=== PATIENT | male | born 1950 | race Caucasian/White ===

== ENCOUNTER 2019-07-22 12:01 | Emergency (ER) | payer MEDICARE, OTHER ==
--- NOTE | 2019-07-22 13:01 | EDM.PDOC ---
ED HPI GENERAL MEDICAL PROBLEM - General Chief Complaint: General Stated Complaint: LEFT LIP NUMB LEFT HAND Time Seen by Provider: 07/22/19 12:50 Source of Information: Reports: Patient, RN Notes Reviewed History Limitations: Reports: No Limitations - History of Present Illness INITIAL COMMENTS - FREE TEXT/NARRATIVE: 69-year-old gentleman presents emergency department the complaint of numbness left lower lip and left hand. He states the symptoms started yesterday they are intermittent happens about once every 45 minutes it is increasing in frequency it feels very intense will last about a minute then completely resolves at times the lip will be numb without the fingertips going numb. Denies any other symptoms does have a remote history of multiple sclerosis - Related Data Allergies Allergy/AdvReac Type Severity Reaction Status Date / Time No Known Allergies Allergy Verified 09/24/13 11:16 Home Meds: Home Meds Omeprazole [priLOSEC OTC] 20 mg PO DAILY 09/24/13 [History] Aspirin 81 mg PO DAILY 07/22/19 [History] LORazepam 1 mg PO BEDTIME 07/22/19 [History] Levothyroxine [Synthroid] 50 mcg PO DAILY 07/22/19 [History] Past Medical History Neurological History: Reports: MS Endocrine/Metabolic History: Reports: Hypothyroidism Social & Family History - Tobacco Use Smoking Status *Q: Never Smoker - Caffeine Use Caffeine Use: Reports: Coffee - Recreational Drug Use Recreational Drug Use: No ED ROS GENERAL - Review of Systems Review Of Systems: See Below Constitutional: Reports: No Symptoms HEENT: Reports: No Symptoms Respiratory: Reports: No Symptoms Cardiovascular: Reports: No Symptoms GI/Abdominal: Reports: No Symptoms : Reports: No Symptoms Neurological: Reports: Numbness, Tingling ED EXAM, GENERAL - Physical Exam Exam: See Below Exam Limited By: No Limitations General Appearance: Alert, WD/WN, No Apparent Distress Eye Exam: Bilateral Eye: Normal Inspection, PERRL Ears: Normal External Exam, Normal Canal, Hearing Grossly Normal, Normal TMs Nose: Normal Inspection, Normal Mucosa, No Blood Throat/Mouth: Normal Inspection, Normal Lips, Normal Teeth, Normal Gums, Normal Oropharynx, Normal Voice, No Airway Compromise, Other (Venous kevin left lower lip) Head: Atraumatic, Normocephalic Neck: Normal Inspection, Supple, Non-Tender, Full Range of Motion Respiratory/Chest: No Respiratory Distress Neurological: Alert, Oriented, CN II-XII Intact, Normal Cognition, Normal Gait. No: Sensory/Motor Deficit Course - Vital Signs Last Recorded V/S: Last Vital Signs Temp 96.8 F 07/22/19 12:16 Pulse 67 07/22/19 12:16 Resp 16 07/22/19 12:16 BP 162/97 H 07/22/19 12:16 Pulse Ox 97 07/22/19 12:16 - Orders/Labs/Meds Labs: Laboratory Tests 07/22/19 07/22/19 Range/Units 13:02 13:02 WBC 7.1 (4.5-11.0) K/uL RBC 4.66 (4.30-5.90) M/uL Hgb 14.9 (12.0-15.0) g/dL Hct 44.9 (40.0-54.0) % MCV 96 (80-98) fL MCH 32 H (27-31) pg MCHC 33 (32-36) % Plt Count 226 (150-400) K/uL Neut % (Auto) 62 (36-66) % Lymph % (Auto) 27 (24-44) % Liberty % (Auto) 8 H (2-6) % Eos % (Auto) 3 (2-4) % Baso % (Auto) 0 (0-1) % Sodium 139 L (140-148) mmol/L Potassium 4.3 (3.6-5.2) mmol/L Chloride 102 (100-108) mmol/L Carbon Dioxide 26 (21-32) mmol/L Anion Gap 15.3 H (5.0-14.0) mmol/L BUN 17 (7-18) mg/dL Creatinine 1.2 (0.8-1.3) mg/dL Est Cr Clr Drug Dosing 69.44 mL/min Estimated GFR (MDRD) > 60 (>60) Glucose 99 (74-106) mg/dL Calcium 8.9 (8.5-10.1) mg/dL Total Bilirubin 0.4 (0.2-1.0) mg/dL AST 26 (15-37) U/L ALT 30 (12-78) U/L Alkaline Phosphatase 98 (46-116) U/L Total Protein 7.8 (6.4-8.2) g/dL Albumin 4.0 (3.4-5.0) g/dL Globulin 3.8 H (2.3-3.5) g/dL Albumin/Globulin Ratio 1.1 L (1.2-2.2) TSH, Ultra Sensitive 3.291 (0.358-3.740) uIU/mL Departure - Departure Time of Disposition: 13:48 Disposition: Home, Self-Care 01 Condition: Fair Clinical Impression: Numbness and tingling in left hand - Discharge Information Referrals: PCP,None [Primary Care Provider] - Forms: ED Department Discharge Additional Instructions: [facility] and schedule an appointment with your [facility]ist as soon as possible, call or return to the emergency department for worsening of symptoms - Assessment/Plan Plan: Assessment Acuity = acute Site and laterality = numbness and tingling face and hand Etiology = probably related to multiple sclerosis exacerbation Manifestations = none Location of injury = Home Lab values = CBC CMP unremarkable thyroid within normal limits Plan Did review lab work with him talked about the possibility of visiting with [facility]y [facility] repeating his MRI brain and thoracic cord is been over 10 years since he has had a follow-up visit also to reviewed new MS medications This note was dictated using [employer] recognition software please call with any questions on syntax or grammar.
== END 2019-07-22 13:57 | disposition home or self-care (01) ==
LOC: JP.ED 12:01
DX: R20.0 Anesthesia of skin (principal); R20.2 Paresthesia of skin; E03.9 Hypothyroidism, unspecified; Z79.82 Long term (current) use of aspirin; Z79.890 Hormone replacement therapy
CPT/HCPCS: 36415; 80053; 84443; 85025; 99284

== ENCOUNTER 2020-09-26 05:19 | Emergency (ER) | payer OTHER ==
[2020-09-26] MEDS ORDERED: Cetirizine 10 MG Tab PO ONE (05:42)
[2020-09-26] MEDS ORDERED: hydrOXYzine HCl 25 MG Tab PO ONE (05:42)
[2020-09-26] MEDS ORDERED: Famotidine 20 MG Tab PO ONE (05:42)
[2020-09-26] MEDS ORDERED: methylPREDNISolone Sodium Succinate 125 MG/2 ML SDV IM ONE (05:42)
--- NOTE | 2020-09-26 05:42 | EDM.PDOC ---
ED HPI GENERAL MEDICAL PROBLEM - General Chief Complaint: Skin Complaint Stated Complaint: RASH Time Seen by Provider: 09/26/20 05:37 Source of Information: Reports: Patient History Limitations: Reports: No Limitations - History of Present Illness INITIAL COMMENTS - FREE TEXT/NARRATIVE: Felix is a 70-year-old male presenting to the ED for evaluation of a rash. The rash started on his posterior last evening and was somewhat pruritic. The rash was red, swollen, and hot. Patient reports that after scratching the rash the area starts to burn. Through the evening the rash spread around the waistline to the front and started to intensify in itch, redness, and swelling. This morning the rash also spread to the face causing swelling of the forehead. The patient started trazodone and amitriptyline roughly 4 weeks ago and at the same time had a COVID-19 vaccination. He denies anything else new. The patient has been under considerable amount of stress. He denies any tongue or oropharyngeal swelling, difficulty breathing or swallowing, chest pain, abdominal pain, nausea or vomiting, or diarrhea. He has not had any new foods. - Related Data Allergies Allergy/AdvReac Type Severity Reaction Status Date / Time No Known Allergies Allergy Verified 09/24/13 11:16 Home Meds: Home Meds Omeprazole [priLOSEC OTC] 20 mg PO DAILY 09/24/13 [History] Aspirin 81 mg PO DAILY 07/22/19 [History] Levothyroxine [Synthroid] 50 mcg PO DAILY 07/22/19 [History] hydrOXYzine pamoate [Vistaril] 25 mg PO Q6H PRN #30 cap 09/26/20 [Rx] Past Medical History HEENT History: Reports: Impaired Vision Musculoskeletal History: Reports: Other (See Below) Other Musculoskeletal History: MS Neurological History: Reports: MS Endocrine/Metabolic History: Reports: Hypothyroidism - Infectious Disease History Infectious Disease History: Reports: Chicken Pox Social & Family History - Tobacco Use Tobacco Use Status *Q: Former Tobacco User Used Tobacco, but Quit: Yes Month/Year Tobacco Last Used: longtime ago - Caffeine Use Caffeine Use: Reports: Coffee - Recreational Drug Use Recreational Drug Use: No ED ROS GENERAL - Review of Systems Review Of Systems: See Below Constitutional: Reports: No Symptoms HEENT: Reports: No Symptoms Respiratory: Reports: No Symptoms Cardiovascular: Reports: No Symptoms Endocrine: Reports: No Symptoms GI/Abdominal: Reports: No Symptoms : Reports: No Symptoms Musculoskeletal: Reports: No Symptoms Skin: Reports: Pruritis, Rash (Buttocks, waistline, and face), Urticaria Neurological: Reports: No Symptoms Psychiatric: Reports: No Symptoms Hematologic/Lymphatic: Reports: No Symptoms Immunologic: Reports: No Symptoms ED EXAM, SKIN/RASH Exam: See Below Exam Limited By: No Limitations General Appearance: Alert, No Apparent Distress Eye Exam: Bilateral Eye: EOMI, PERRL Throat/Mouth: Normal Inspection, Normal Lips, Normal Oropharynx, Normal Voice, No Airway Compromise Head: Atraumatic, Normocephalic, Facial Swelling (Redness, swelling, and pruritus in the forehead consistent with urticaria) Neck: Normal Inspection, Supple Respiratory/Chest: No Respiratory Distress, Lungs Clear, Normal Breath Sounds Cardiovascular: Normal Peripheral Pulses, Regular Rate, Rhythm, No Murmur GI/Abdominal: Normal Bowel Sounds, Soft, Non-Tender Neurological: Alert, Oriented, Normal Cognition, No Motor/Sensory Deficits Skin: Rash (Great urticaria on the buttocks, anterior waistline, and forehead. The area blanches. There is quite pruritic.) Location, Skin: Face, Abdomen, Pelvis Characteristics: Urticarial Associated features: Warmth, Swelling Lymphatic: No Adenopathy Course - Vital Signs Last Recorded V/S: Last Vital Signs Temp 36.5 C 09/26/20 05:26 Pulse 52 L 09/26/20 05:26 Resp BP 144/70 H 09/26/20 05:26 Pulse Ox 98 09/26/20 05:26 - Orders/Labs/Meds Meds: Medications Discontinued Medications Generic Name Dose Route Start Last Admin Trade Name Freq PRN Reason Stop Dose Admin Cetirizine HCl 10 mg 09/26/20 05:42 09/26/20 05:52 Zyrtec PO 09/26/20 05:43 10 mg ONETIME ONE Administration Famotidine 20 mg 09/26/20 05:42 09/26/20 05:48 Pepcid PO 09/26/20 05:43 20 mg ONETIME ONE Administration Hydroxyzine HCl 25 mg 09/26/20 05:42 09/26/20 05:52 Atarax PO 09/26/20 05:43 25 mg ONETIME ONE Administration Methylprednisolone Sodium Succinate 125 mg 09/26/20 05:42 09/26/20 05:48 Solu-Medrol IM 09/26/20 05:43 125 mg ONETIME ONE Administration - Re-Assessments/Exams Free Text/Narrative Re-Assessment/Exam: 09/26/20 05:49 patient exhibits a rash that is urticarial in nature and very paretic, raised, red, and swollen. This is likely due to cholinergic histamine release secondary to stress. We will treat this with Solu-Medrol 125 mg IM, Pepcid 20 mg p.o., cetirizine 10 mg p.o., and hydroxyzine 25 mg p.o. Patient will likely need a prescription for hydroxyzine to control the itch. There is no oropharyngeal or respiratory involvement. I anticipate full recovery today. 09/26/20 06:20 patient rechecked with improvement of the urticaria and the pruritus is now gone. Departure - Departure Time of Disposition: 06:20 Disposition: Home, Self-Care 01 Condition: Good Clinical Impression: Urticaria - Discharge Information *PRESCRIPTION DRUG MONITORING PROGRAM REVIEWED*: Not Applicable *COPY OF PRESCRIPTION DRUG MONITORING REPORT IN PATIENT ISAIAS: Not Applicable Prescriptions: hydrOXYzine pamoate [Vistaril] 25 mg PO Q6H PRN #30 cap PRN Reason: Hives Referrals: Alka Quesada [employer] TECHNOLOGIST [Primary Care Provider] - Forms: ED Department Discharge Care Plan Goals: You have received treatment for urticaria (hives) with hydroxyzine to control the itch and cetirizine, Solu-Medrol, and Pepcid to control the histamine. This is likely mediated by stress. It can recur in high stress situations, however, I anticipate that it will fully clear up today. I am giving you a prescription for the hydroxyzine should it recur so that you have an ability to control the itch. You may buy [id number] Zyrtec which is cetirizine and over-the- counter Pepcid for any future outbreak as these are both potent histamine blockers. Return to the emergency room should you develop any difficulty with breathing or swallowing, chest pain, increased abdominal pain, nausea, vomiting, or diarrhea. Sepsis Event Note (ED) - Evaluation Sepsis Screening Result: No Definite Risk - Focused Exam Vital Signs: Vital Signs Temp Pulse BP Pulse Ox 09/26/20 05:26 36.5 C 52 L 144/70 H 98 - Problem List & Annotations (1) Urticaria SNOMED Code(s): 623058967 Code(s): L50.9 - URTICARIA, UNSPECIFIED Status: Acute Priority: Low Current Visit: Yes - Problem List Review Problem List Initiated/Reviewed/Updated: Yes
== END 2020-09-26 06:28 | disposition home or self-care (01) ==
LOC: JP.ED 05:19
DX: L50.9 Urticaria, unspecified (principal); E03.9 Hypothyroidism, unspecified; Z87.891 Personal history of nicotine dependence; Z79.899 Other long term (current) drug therapy
CPT/HCPCS: 96372; 99282; 99283; A9270; J2930

== ENCOUNTER 2021-03-07 16:32 | Emergency (ER) | payer OTHER, MEDICARE ==
[2021-03-07] MEDS ORDERED: HYDROmorphone 0.5 MG/0.5 ML Syringe IVPUSH ONE (17:12)
--- NOTE | 2021-03-07 17:39 | EDM.PDOC ---
ED HPI GENERAL MEDICAL PROBLEM - General Chief Complaint: Abdominal Pain Stated Complaint: UPPER ABDOMINAL PAIN(POST VALVE REPLACEMENT) Time Seen by Provider: 03/07/21 17:10 Source of Information: Reports: Patient, Family History Limitations: Reports: No Limitations - History of Present Illness INITIAL COMMENTS - FREE TEXT/NARRATIVE: 70-year-old male who has been through several medical procedures in the last couple of months including cardiac valve replacement, and is now on dialysis. 2 hours ago he developed a very sudden sharp pain in his right anterolateral chest wall which is very tender. It hurts to breathe. No nausea or vomiting or shortness of breath. No cough or fever. It is intensely uncomfortable, this has not happened to him in the past. Onset: Sudden Duration: Hour(s): (Pain started fairly suddenly 2 hours ago) Location: Reports: Other (Localized to the right anterior lower chest wall) Quality: Reports: Sharp, Stabbing Worsens with: Reports: Other (Palpation or movement) Associated Symptoms: Reports: No Other Symptoms. Denies: Cough, Loss of Appetite, Nausea/Vomiting, Shortness of Breath Abdomen Pain Score (Numeric/FACES): 8 - Related Data Allergies Allergy/AdvReac Type Severity Reaction Status Date / Time [id number] Reductase Allergy Muscle Verified 03/07/21 17:07 Inhibitor Weakness trazodone Allergy Hives Verified 03/07/21 17:07 Home Meds: Home Meds Aspirin [Halfprin] 81 mg PO DAILY 03/07/21 [History] Eszopiclone 2 mg PO BEDTIME 03/07/21 [History] Eszopiclone [Lunesta] 2 mg PO BEDTIME 03/07/21 [History] Levothyroxine [Synthroid] 50 mcg PO ACBREAKFAST 03/07/21 [History] Omeprazole 20 mg PO DAILY 03/07/21 [History] Rosuvastatin [Crestor] 20 mg PO DAILY 03/07/21 [History] Sertraline [Zoloft] 25 mg PO DAILY 03/07/21 [History] Warfarin [Coumadin] 2.5 mg PO DAILY 03/07/21 [History] Warfarin [Coumadin] 5 mg PO ASDIRECTED 03/07/21 [History] carvediloL [Carvedilol] 12.5 mg PO ASDIRECTED 03/07/21 [History] carvediloL [Carvedilol] 12.5 mg PO ASDIRECTED 03/07/21 [History] Past Medical History HEENT History: Reports: Impaired Vision Musculoskeletal History: Reports: Other (See Below) Other Musculoskeletal History: MS Neurological History: Reports: MS Endocrine/Metabolic History: Reports: Hypothyroidism - Infectious Disease History Infectious Disease History: Reports: Chicken Pox - Past Surgical History Cardiovascular Surgical History: Reports: Valve Replacement Social & Family History - Tobacco Use Tobacco Use Status *Q: Former Tobacco User Used Tobacco, but Quit: Yes Month/Year Tobacco Last Used: years ago - Caffeine Use Caffeine Use: Reports: Coffee - Recreational Drug Use Recreational Drug Use: No ED ROS GENERAL - Review of Systems Review Of Systems: See Below Constitutional: Reports: Malaise. Denies: Fever, Chills Respiratory: Reports: Pleuritic Chest Pain. Denies: Shortness of Breath Cardiovascular: Reports: Chest Pain. Denies: Palpitations GI/Abdominal: Denies: Abdominal Pain, Nausea, Vomiting Skin: Reports: No Symptoms Neurological: Reports: No Symptoms Psychiatric: Reports: No Symptoms ED EXAM, GENERAL - Physical Exam Exam: See Below Exam Limited By: No Limitations General Appearance: Alert, Mild Distress, Other (Very uncomfortable initially) Eye Exam: Bilateral Eye: Normal Inspection (No jaundice) Head: Atraumatic Neck: Supple, Non-Tender Respiratory/Chest: No Respiratory Distress, Lungs Clear, Other (Very localized tenderness to palpation over the lower anterior right rib cage, no rash over tender area or bruising) Cardiovascular: Regular Rate, Rhythm GI/Abdominal: Soft, Non-Tender, Other (No palpation tenderness in the right upper quadrant) Extremities: No Pedal Edema Neurological: Alert, Oriented Psychiatric: Anxious Skin Exam: Warm, Dry Course - Vital Signs Last Recorded V/S: Last Vital Signs Temp 97.3 F 03/07/21 17:06 Pulse 48 L 03/07/21 17:59 Resp 16 03/07/21 17:59 BP 94/75 03/07/21 17:59 Pulse Ox 95 03/07/21 17:59 - Orders/Labs/Meds Meds: Medications Discontinued Medications Generic Name Dose Route Start Last Admin Trade Name Freq PRN Reason Stop Dose Admin Hydromorphone HCl 0.5 mg 03/07/21 17:12 03/07/21 17:16 Hydromorphone 0.5 Mg/0.5 Ml Syringe IVPUSH 03/07/21 17:13 0.5 mg ONETIME ONE Administration - Re-Assessments/Exams Free Text/Narrative Re-Assessment/Exam: 03/08/21 11:24 Patient was given 0.5 mg of IV Dilaudid and sent back for two-view chest x-ray. The x-ray showed no effusion, pneumothorax or pulmonary abnormality, his pain had almost resolved. He could still reproduce it on palpation. He was encouraged to use his tramadol as needed for pain control, heating pad, and return if worsening and was discharged with a diagnosis of chest wall pain. Departure - Departure Time of Disposition: 18:19 Disposition: Home, Self-Care 01 Clinical Impression: Acute chest wall pain - Discharge Information Instructions: Chest Wall Pain, [id number] Referrals: Felix Light MD [Primary Care Provider] - Forms: ED Department Discharge Care Plan Goals: Continue your current medications, use your pain medications if needed, and a heating pad or warm compress to the area may be beneficial as well. Return anytime if worsening such as shortness of breath, recurrence of pain that is persistent or other concerns. Sepsis Event Note (ED) - Evaluation Sepsis Screening Result: No Definite Risk
--- NOTE | 2021-03-08 11:12 | CR ---
CHEST: 2 view CLINICAL HISTORY:Epigastric pain, lightheadedness COMPARISON:August 2020 FINDINGS: Patient has undergone mitral valve repair. Heart size and pulmonary vascularity are normal. Lungs are clear. There is a minimal left effusion. There is a right jugular double-lumen catheter in place. Impression: No acute cardiac pulmonary process Minimal left effusion Recent valve surgery
== END 2021-03-07 18:34 | disposition home or self-care (01) ==
LOC: JP.ED 16:32
DX: R07.89 Other chest pain (principal); E03.9 Hypothyroidism, unspecified; Z79.899 Other long term (current) drug therapy; Z87.891 Personal history of nicotine dependence; Z79.82 Long term (current) use of aspirin; Z79.01 Long term (current) use of anticoagulants; Z88.8 Allergy status to other drugs, medicaments and biological substances; Z88.5 Allergy status to narcotic agent
CPT/HCPCS: 71046; 96374; 99284; J1170

== ENCOUNTER 2022-01-10 20:34 | Inpatient (IN) | payer MEDICARE, OTHER ==
[2022-01-10] MEDS ORDERED: Ondansetron 4 MG/2 ML SDV IVPUSH ONE (20:41)
[2022-01-10] MEDS ORDERED: Sodium Chloride 0.9% 10 ML Syringe FLUSH PRN (20:48)
[2022-01-10] MEDS ORDERED: Aspirin 81 MG Tab.Chew PO ONE (20:48)
[2022-01-10] MEDS ORDERED: fentaNYL 100 MCG/2 ML SDV IVPUSH ONE (20:48)
[2022-01-10] MEDS ORDERED: Lactated Ringers 1,000 ML IV ONE (20:48)
[2022-01-10 21:16] LABS: TROPONIN I HIGH SENSITIVITY 59.1 pg/mL (<=60.3)
[2022-01-10] MEDS ORDERED: HYDROmorphone 1 MG/ML Syringe IVPUSH ONE ×2 (21:24→22:39)
[2022-01-10] MEDS ORDERED: HYDROmorphone 0.5 MG/0.5 ML Syringe IVPUSH ONE (23:45)
[2022-01-11] MEDS ORDERED: Lactated Ringers 1,000 ML IV ONE (02:53)
[2022-01-11] MEDS: HYDROmorphone 0.5 MG/0.5 ML Syringe IVPUSH PRN ×6 (03:01→10:48)
[2022-01-11] MEDS: Piperacillin/Tazobactam 3.375 GM in Sodium Chloride 0.9% 50 ML IV SCH ×2 (03:06→14:37)
[2022-01-11] MEDS ORDERED: Ketamine 500 MG/5 ML MDV IV ONE (04:00)
[2022-01-11] MEDS ORDERED: Piperacillin/Tazobactam/Dext 2.25 GM in Premix Bag 1 BAG IV SCH (10:00)
[2022-01-11] MEDS ORDERED: Sodium Chloride 0.9% 10 ML Syringe FLUSH PRN (11:32)
[2022-01-11] MEDS ORDERED: Piperacillin/Tazobactam 2.25 GM in Sodium Chloride 0.9% 50 ML IV SCH (11:32)
[2022-01-11] MEDS ORDERED: Ondansetron 4 MG/2 ML SDV IV PRN (11:32)
[2022-01-11] MEDS ORDERED: Acetaminophen 325 MG Tab PO PRN (11:32)
[2022-01-11] MEDS ORDERED: Enoxaparin 100 MG/1 ML Syringe SUBCUT SCH (12:00)
[2022-01-11] MEDS: Sodium Chloride 0.9% 1,000 ML IV SCH ×2 (13:01→21:16)
[2022-01-11] MEDS ORDERED: Omeprazole 20 MG Cap.CR PO ONE (13:30)
[2022-01-11] MEDS: Enoxaparin 100 MG/1 ML Syringe SUBCUT SCH (14:18)
[2022-01-11] MEDS: HYDROmorphone 1 MG/ML Syringe IVPUSH PRN ×4 (14:19→22:25)
[2022-01-11] MEDS: Omeprazole 20 MG Cap.CR PO SCH (17:04)
[2022-01-11] MEDS: Piperacillin/Tazobactam/Dext 2.25 GM in Premix Bag 1 BAG IV SCH ×2 (17:04→22:29)
[2022-01-11] MEDS ORDERED: Non-Formulary Medication 1 Each (Rosuvastatin [Crestor] 20 MG Tablet) PO SCH (21:00)
[2022-01-11] MEDS: Mirtazapine 15 MG Tab PO SCH (21:13)
[2022-01-11] MEDS: Carvedilol 12.5 MG Tab PO SCH (21:13)
[2022-01-11] MEDS: Rosuvastatin 10 MG Tab PO SCH (21:14)
[2022-01-12] MEDS: Piperacillin/Tazobactam/Dext 2.25 GM in Premix Bag 1 BAG IV SCH ×4 (05:13→23:03)
[2022-01-12] MEDS: Sodium Chloride 0.9% 1,000 ML IV SCH (05:17)
[2022-01-12] MEDS ORDERED: Pantoprazole 40 MG Tab.CR PO SCH (07:30)
[2022-01-12] MEDS: Levothyroxine 50 MCG Tab PO SCH (07:44)
[2022-01-12] MEDS: Carvedilol 12.5 MG Tab PO SCH ×2 (08:06→20:01)
[2022-01-12] MEDS ORDERED: Non-Formulary Medication 1 Each (Omeprazole [Omeprazole] 20 MG Capsule.Dr) PO SCH (09:00)
[2022-01-12] MEDS: Enoxaparin 100 MG/1 ML Syringe SUBCUT SCH (11:10)
[2022-01-12] MEDS ORDERED: Sodium Chloride 0.9% 1,000 ML IV SCH (14:00)
[2022-01-12] MEDS: Omeprazole 20 MG Cap.CR PO SCH (16:39)
[2022-01-12] MEDS: Mirtazapine 15 MG Tab PO SCH (20:01)
[2022-01-12] MEDS: Rosuvastatin 10 MG Tab PO SCH (20:02)
[2022-01-13] MEDS ORDERED: Sodium Chloride 0.9% 1,000 ML IV SCH (00:01)
[2022-01-13] MEDS: Piperacillin/Tazobactam/Dext 2.25 GM in Premix Bag 1 BAG IV SCH ×4 (05:09→22:30)
[2022-01-13] MEDS: Carvedilol 12.5 MG Tab PO SCH ×3 (05:10→20:24)
[2022-01-13] MEDS: Levothyroxine 50 MCG Tab PO SCH (07:33)
[2022-01-13] MEDS ORDERED: Bupivacaine 0.5% 50 ML MDV ONE (07:35)
[2022-01-13] MEDS ORDERED: Lidocaine 1% with EPINEPHrine 1:100,000 50 ML MDV ONE (07:36)
[2022-01-13] MEDS ORDERED: Rocuronium 50 MG/5 ML Vial ONE (08:47)
[2022-01-13] MEDS ORDERED: fentaNYL 250 MCG/5 ML SDV ONE (08:47)
[2022-01-13] MEDS ORDERED: Neostigmine Methylsulfate 1 MG/ML 5 ML Syringe ONE (08:47)
[2022-01-13] MEDS ORDERED: Dexamethasone 4 MG/ML SDV ONE (08:47)
[2022-01-13] MEDS ORDERED: Propofol 200 MG/20 ML SDV ONE (08:47)
[2022-01-13] MEDS ORDERED: Succinylcholine 200 MG/10 ML MDV ONE (08:47)
[2022-01-13] MEDS ORDERED: Ondansetron 4 MG/2 ML SDV ONE (08:47)
[2022-01-13] MEDS ORDERED: Glycopyrrolate 0.2 MG/ML 5 ML MDV ONE (08:47)
[2022-01-13] MEDS ORDERED: Lidocaine 1% with EPINEPHrine 1:100,000 50 ML MDV INJECT ONE (13:20)
[2022-01-13] MEDS ORDERED: Bupivacaine 0.5% 50 ML MDV INJECT ONE (13:20)
[2022-01-13] MEDS: Dextrose 5%-Lactated Ringers 1,000 ML IV SCH (15:37)
[2022-01-13] MEDS: HYDROmorphone 1 MG/ML Syringe IVPUSH PRN (15:38)
[2022-01-13] MEDS: Acetaminophen 325 MG Tab PO SCH ×2 (15:45→22:30)
[2022-01-13] MEDS ORDERED: Warfarin 5 MG Tab PO ONE (17:00)
[2022-01-13] MEDS: Omeprazole 20 MG Cap.CR PO SCH (17:11)
[2022-01-13] MEDS ORDERED: Enoxaparin 100 MG/1 ML Syringe SUBCUT SCH (18:00)
[2022-01-13] MEDS: HYDROmorphone 2 MG Tab PO PRN ×2 (18:30→22:29)
[2022-01-13] MEDS: Mirtazapine 15 MG Tab PO SCH (20:24)
[2022-01-13] MEDS: Rosuvastatin 10 MG Tab PO SCH (20:24)
[2022-01-14] MEDS: Dextrose 5%-Lactated Ringers 1,000 ML IV SCH (02:38)
[2022-01-14] MEDS: Piperacillin/Tazobactam/Dext 2.25 GM in Premix Bag 1 BAG IV SCH (04:29)
[2022-01-14] MEDS: Acetaminophen 325 MG Tab PO SCH (04:29)
[2022-01-14] MEDS: Levothyroxine 50 MCG Tab PO SCH (08:25)
[2022-01-14] MEDS: Carvedilol 12.5 MG Tab PO SCH (08:28)
[2022-01-14] MEDS: HYDROmorphone 2 MG Tab PO PRN (08:43)
[2022-01-14] MEDS ORDERED: Warfarin 5 MG Tab PO ONE (13:00)
== END 2022-01-14 10:15 | disposition home or self-care (01) | DRG 418 ==
LOC: JP.ED 20:34 → JP.ICU 01-11 10:20
PROVIDERS: ADMIT Hospitalist; ATTEND Hospitalist
PROC: 0F9 Hepatobiliary System and Pancreas, Drainage (ICD-10-PCS; principal; 2022-01-13)
PROC: 0FT44ZZ Resection of Gallbladder, Percutaneous Endoscopic Approach (ICD-10-PCS; 2022-01-13)
DX: K80.00 Calculus of gallbladder with acute cholecystitis without obstruction (principal); I50.22 Chronic systolic (congestive) heart failure; N18.4 Chronic kidney disease, stage 4 (severe); K21.9 Gastro-esophageal reflux disease without esophagitis; J43.2 Centrilobular emphysema; K81.9 Cholecystitis, unspecified; G47.00 Insomnia, unspecified; F43.10 Post-traumatic stress disorder, unspecified; Z87.891 Personal history of nicotine dependence; H35.30 Unspecified macular degeneration; I25.10 Atherosclerotic heart disease of native coronary artery without angina pectoris; Z95.2 Presence of prosthetic heart valve; H54.7 Unspecified visual loss; Z99.2 Dependence on renal dialysis; G35 Multiple sclerosis; E03.9 Hypothyroidism, unspecified; Z98.49 Cataract extraction status, unspecified eye; Z79.01 Long term (current) use of anticoagulants; Z95.5 Presence of coronary angioplasty implant and graft; I71.4 Abdominal aortic aneurysm, without rupture; Z79.890 Hormone replacement therapy; Z79.899 Other long term (current) drug therapy; Z88.8 Allergy status to other drugs, medicaments and biological substances; Z20.822 Contact with and (suspected) exposure to COVID-19
CPT/HCPCS: 36415 ×2; 71045 ×2; 74018 ×2; 74176; 76705; 80048; 80053; 80076; 83605; 83690; 84484 ×2; 85025 ×2; 85610 ×2; 87635; 93005; 96361 ×2; 96365; 96375 ×2; 96376 ×2; 99285; A9270; J1170 ×8; J2405; J2543; J3010; J3490; J7120 ×2; 83735; 83880; 84100; 85027; 86850; 86900; 86901; 86920; 86922; 87070; 87075; 87205; 96366; 99284; J0171; J0330; J1100; J1650; J2704; J2710; J2795; J3430; J7030; J7121; U0002

== ENCOUNTER 2022-02-15 09:18 | Emergency (ER) | payer OTHER ==
[2022-02-15] MEDS ORDERED: Sodium Chloride 0.9% 1,000 ML IV ONE (09:58)
[2022-02-15 11:00] LABS: CORONAVIRUS COVID-19 NAA NEGATIVE (NEGATIVE)
== END 2022-02-15 11:27 | disposition home or self-care (01) ==
LOC: JP.ED 09:18
DX: E86.0 Dehydration (principal); N18.30 Chronic kidney disease, stage 3 unspecified; I25.10 Atherosclerotic heart disease of native coronary artery without angina pectoris; E03.9 Hypothyroidism, unspecified; Z20.822 Contact with and (suspected) exposure to COVID-19; Z79.899 Other long term (current) drug therapy
CPT/HCPCS: 0241U; 36415; 80048; 85025; 85610; 96360; 99282; 99284; J7030

== ENCOUNTER 2022-03-14 20:49 | Observation (INO) | payer OTHER ==
[2022-03-14] MEDS ORDERED: Sodium Chloride 0.9% 10 ML Syringe FLUSH PRN (22:23)
[2022-03-14 23:06] LABS: ESTIMATED GFR 26 mL/min (>60)
[2022-03-14 23:09] LABS: TROPONIN I HIGH SENSITIVITY 55.3 pg/mL (<=60.3)
[2022-03-14] MEDS ORDERED: Sodium Chloride 0.9% 1,000 ML IV ONE (23:10)
[2022-03-15] MEDS ORDERED: Magnesium Sulfate/Water 2 GM in Premix Bag 1 BAG IV ONE (00:06)
[2022-03-15] MEDS ORDERED: Calcium Carbonate 500 MG Tab.Chew PO ONE (00:16)
[2022-03-15] MEDS ORDERED: REMDESIVIR 200 MG in Sodium Chloride 0.9% 250 ML IV ONE (04:47)
[2022-03-15] MEDS ORDERED: Docusate Sodium 100 MG Cap PO PRN (04:47)
[2022-03-15] MEDS ORDERED: Sodium Chloride 0.9% 1,000 ML IV SCH (04:47)
[2022-03-15] MEDS ORDERED: Ondansetron 4 MG Tab.DIS PO PRN (04:47)
[2022-03-15] MEDS ORDERED: Acetaminophen 325 MG Tab PO PRN ×2 (04:47)
[2022-03-15] MEDS ORDERED: Albuterol/Ipratropium 4 GM Inhalation Spray INH PRN (04:47)
[2022-03-15] MEDS ORDERED: Morphine 2 MG/ML SYRINGE IVPUSH PRN (04:47)
[2022-03-15] MEDS ORDERED: Albuterol 8 GM Inhaler INH PRN (04:47)
[2022-03-15] MEDS ORDERED: Bisacodyl 5 MG Tab PO PRN (04:47)
[2022-03-15] MEDS ORDERED: oxyCODONE 5 MG Tab PO PRN (04:47)
[2022-03-15] MEDS ORDERED: Pantoprazole 40 MG Tab.CR PO SCH (07:30)
[2022-03-15] MEDS ORDERED: Levothyroxine 50 MCG Tab PO SCH (07:30)
[2022-03-15] MEDS ORDERED: Dexamethasone 4 MG/ML SDV IVPUSH SCH (09:00)
[2022-03-15] MEDS ORDERED: Carvedilol 12.5 MG Tab PO SCH (09:00)
[2022-03-15] MEDS ORDERED: Warfarin 5 MG Tab PO SCH (13:00)
[2022-03-15] MEDS ORDERED: Mirtazapine 15 MG Tab PO SCH (21:00)
[2022-03-15] MEDS ORDERED: Rosuvastatin 10 MG Tab PO SCH (21:00)
[2022-03-16] MEDS ORDERED: REMDESIVIR 100 MG in Sodium Chloride 0.9% 100 ML IV SCH (09:00)
[2022-03-16] MEDS ORDERED: Warfarin 5 MG Tab PO SCH (13:00)
== END 2022-03-15 15:05 | disposition home or self-care (01) ==
LOC: JP.ED 20:49 → JP.MS 03-15 04:29 → INTOOBSV 03-15 04:29
PROVIDERS: ADMIT Nurse Practitioner; ATTEND Hospitalist
DX: U07.1 COVID-19 (principal); J12.82 Pneumonia due to coronavirus disease 2019; R55 Syncope and collapse; I50.9 Heart failure, unspecified; I25.10 Atherosclerotic heart disease of native coronary artery without angina pectoris; E03.9 Hypothyroidism, unspecified; N18.4 Chronic kidney disease, stage 4 (severe); J43.2 Centrilobular emphysema; F51.04 Psychophysiologic insomnia; Z88.8 Allergy status to other drugs, medicaments and biological substances; Z98.890 Other specified postprocedural states; Z90.49 Acquired absence of other specified parts of digestive tract; Z95.2 Presence of prosthetic heart valve
CPT/HCPCS: 36415; 71045; 80053; 81001; 82248; 83735; 83880; 84443; 84484; 85025; 85610; 86140; 87635; 93005; 96361; 96365; 96366; 96367; 96375; 99285; A9270; G0378; J1100; J3475; J3490; J7030; J7050; 93010; 99217; 99219; 99284; U0002